=== PATIENT | male | born 1950 | race African-American/Black ===

== ENCOUNTER 2017-02-16 05:41 | Inpatient (IN) | payer OTHER ==
[~2017-02-16] VITALS: Ht 190.5 cm; Wt 77.3 kg
[2017-02-16 06:10] LABS: BASE EXCESS -4.7 mEq/L (-3 to +3); BICARBONATE 20.4 mEq/L (22-26); CARBOXY HGB 1.6 % (0-5); COMMENTS - BLOOD GASES C+; DEVICE MASK VENT; FI02 50 %; METHEMOGLOBIN 0.7 % (0-1.5); MODE SPONT; PCO2 37 mm Hg (35-45); PO2 62 mm Hg (80-100); SITE RR; TOTAL RESP RATE 27 resp/min; pH 7.35 (7.35-7.45)
[2017-02-16 06:11] LABS: PEEP 10 CM/H20; PRES. SUPPORT 10 CM/H2O
[2017-02-16 06:43] LABS: EOSINOPHIL (%) 2.2 % (0-5); EOSINOPHIL COUNT 0.1 K/uL (0-0.3); HEMATOCRIT 36.6 % (38.0-50.0); IMMATURE GRANULOCYTE (%) 0.4 % (0.0-0.7); INSTRUMENT ABS NEUTROPHIL CT 3.8 K/uL; LYMPHOCYTE COUNT 0.9 K/uL (1.0-2.8); MCH 29.8 PG (29.0-34.0); MCHC 32.5 G/DL (30.0-36.0); MCV 91.5 FL (86-99); MEAN PLAT.VOLUME 10.3 uM^3 (9.0-12.4); MONOCYTE (%) 3.8 % (3-12); MONOCYTE COUNT 0.2 K/uL (0-0.8); NEUTROPHIL COUNT 3.8 K/uL (1.8-6.4); PLATELET COUNT 242 K/uL (156-360); RBC DIS.WIDTH-SD 43.7 % (39-53)
[2017-02-16 06:53] LABS: INTER. NORMALIZED RATIO 1.1; PROTHROMBIN TIME 10.7 (9.2-11.2); PTT 25.1 (25-32)
[2017-02-16 06:54] LABS: CHLORIDE 105 mEq/L (99-109); POTASSIUM 3.7 mEq/L (3.7-5.4); SODIUM 138 mEq/L (136-147)
[2017-02-16 06:56] LABS: GLUCOSE 179 mg/dL (70-99)
[2017-02-16 06:58] LABS: ANION GAP 12 MEQ/L (2-14); TOTAL BILIRUBIN 0.5 mg/dL (0.0-1.0)
[2017-02-16 07:00] LABS: ALKALINE PHOSPHATASE 77 IU/L (3-129)
[2017-02-16 07:01] LABS: UREA NITROGEN (BUN) 24 mg/dL (9-23)
[2017-02-16 07:02] LABS: GFR ESTIMATE (CALCULATED) 44 mL/min/
[2017-02-16 07:03] LABS: TROP-I INTERPRETATION NEGATIVE; TROPONIN-I 0.03 ng/mL (0.0-0.30)
[2017-02-16 07:04] LABS: LIPASE 22 U/L (1.0-51.0)
[2017-02-16 07:55] LABS: ADD MIUA? NO; BILIRUBIN NEGATIVE; BLOOD NEGATIVE; COLOR COLORLESS ((YELLOW)); GLUCOSE (STRIP) NEGATIVE; KETONES NEGATIVE; LEUKOCYTES NEGATIVE; NITRITE NEGATIVE; PROTEIN (STRIP) 30; SPECIFIC GRAVITY 1.006 (1.000-1.030); UCUL ADDED? NO; UROBILINOGEN 0.2 MG/DL (0.2-1.0)
[2017-02-16 09:47] VITALS: BP 181/107
[2017-02-16 10:14] VITALS: BP 181/107
[2017-02-16 11:45] VITALS: BP 162/95
[2017-02-16 15:30] VITALS: BP 129/74
[2017-02-16 20:36] LABS: TROP-I INTERPRETATION NEGATIVE; TROPONIN-I 0.05 ng/mL (0.0-0.30)
[2017-02-16 20:55] VITALS: BP 132/83
[2017-02-17] VITALS (7 sets, daily range): BP systolic 129–143; BP diastolic 74–89
[2017-02-17 07:34] LABS: ANION GAP 12 MEQ/L (2-14); CHLORIDE 101 MEQ/L (99-109); GFR ESTIMATE (CALCULATED) 44 mL/min/; POTASSIUM 3.8 MEQ/L (3.7-5.4); SAMPLE HEMOLYSIS CHECK 0; SAMPLE ICTERIC CHECK 0; SAMPLE LIPEMIA CHECK 0; SODIUM 141 MEQ/L (136-147); UREA NITROGEN (BUN) 28 mg/dL (9-23)
[2017-02-17 07:37] LABS: GLUCOSE 89 mg/dL (70-99)
[2017-02-17 08:45] LABS: HEMATOCRIT 38.2 % (38.0-50.0); MCV 92.3 FL (86-99)
[2017-02-17 08:57] LABS: HDL CHOLESTEROL 51 MG/DL (Desirable>=40); LDL CHOLESTEROL 127 mg/dL (Desirable<100); NON-HDL CHOLESTEROL 139 mg/dL (Desirable<160); TOTAL CHOLESTEROL 190 mg/dL (Desirable<200); TRIGLYCERIDES 59 MG/DL (Normal: <150)
[2017-02-17 09:30] LABS: TROP-I INTERPRETATION NEGATIVE; TROPONIN-I 0.04 ng/mL (0.0-0.30)
[2017-02-17 09:32] LABS: Estimated Average Glucose 114 mg/dL (70-123); HEMOGLOBIN A1c (GLYCOHEMOGLOB) 5.6 % HGB (Below 5.7)
[2017-02-17 17:21] LABS: ANION GAP 10 MEQ/L (2-14); CHLORIDE 99 MEQ/L (99-109); GFR ESTIMATE (CALCULATED) 53 mL/min/; GLUCOSE 87 mg/dL (70-99); POTASSIUM 3.7 MEQ/L (3.7-5.4); SAMPLE HEMOLYSIS CHECK 0; SAMPLE ICTERIC CHECK 0; SAMPLE LIPEMIA CHECK 0; SODIUM 138 MEQ/L (136-147); UREA NITROGEN (BUN) 30 mg/dL (9-23)
[2017-02-18 03:35] VITALS: BP 135/76
[2017-02-18 06:28] LABS: EOSINOPHIL (%) 3.1 % (0-5); EOSINOPHIL COUNT 0.1 K/uL (0-0.3); HEMATOCRIT 39.2 % (38.0-50.0); IMMATURE GRANULOCYTE (%) 0.3 % (0.0-0.7); INSTRUMENT ABS NEUTROPHIL CT 1.9 K/uL; LYMPHOCYTE COUNT 1.6 K/uL (1.0-2.8); MCH 29.8 PG (29.0-34.0); MCHC 32.7 G/DL (30.0-36.0); MCV 91.4 FL (86-99); MEAN PLAT.VOLUME 10.7 uM^3 (9.0-12.4); MONOCYTE (%) 6.9 % (3-12); MONOCYTE COUNT 0.3 K/uL (0-0.8); NEUTROPHIL (%) 48.7 % (45-76); NEUTROPHIL COUNT 1.9 K/uL (1.8-6.4); PLATELET COUNT 266 K/uL (156-360); RBC DIS.WIDTH-CV 13.1 % (11.8-14.6); RBC DIS.WIDTH-SD 43.3 % (39-53); RED BLOOD COUNT 4.29 M/uL (4.00-5.50); WHITE BLOOD COUNT 3.9 K/uL (4.1-10.2)
[2017-02-18 06:51] LABS: ANION GAP 8 MEQ/L (2-14); CHLORIDE 100 MEQ/L (99-109); GFR ESTIMATE (CALCULATED) 49 mL/min/; GLUCOSE 89 mg/dL (70-99); POTASSIUM 4.1 MEQ/L (3.7-5.4); SAMPLE HEMOLYSIS CHECK 0; SAMPLE ICTERIC CHECK 0; SAMPLE LIPEMIA CHECK 0; SODIUM 136 MEQ/L (136-147); UREA NITROGEN (BUN) 30 mg/dL (9-23)
[2017-02-18 06:54] LABS: ALKALINE PHOSPHATASE 70 IU/L (3-129); ANION GAP 8 MEQ/L (2-14); CHLORIDE 100 MEQ/L (99-109); GFR ESTIMATE (CALCULATED) 53 mL/min/; GLUCOSE 88 mg/dL (70-99); MAGNESIUM 2.3 mg/dl (1.3-2.7); POTASSIUM 4.4 MEQ/L (3.7-5.4); SAMPLE HEMOLYSIS CHECK 0; SAMPLE ICTERIC CHECK 0; SAMPLE LIPEMIA CHECK 0; SODIUM 136 MEQ/L (136-147); TOTAL BILIRUBIN 0.5 MG/DL (0.0-1.0); UREA NITROGEN (BUN) 31 mg/dL (9-23)
[2017-02-18 08:20] VITALS: BP 165/93
[2017-02-18 11:45] VITALS: BP 125/80
[2017-02-18 14:37] LABS: AMPHETAMINES QUANT VALUE 0 NG/ML; BARBITUATES QUANT VALUE 0 NG/ML; BENZODIAZEPINES QUANT VALUE 0 NG/ML; BENZODIAZEPINES, URINE SCREEN Negative (200 ng/mL); MARIJUANA QUANT VALUE 0 NG/ML; OPIATES QUANTITATIVE VALUE 0 NG/ML; PHENCYCLIDINE QUANT VALUE 0 NG/ML
[2017-02-18 16:00] VITALS: BP 152/95
[2017-02-18 20:20] VITALS: BP 155/92
[2017-02-19 00:34] VITALS: BP 136/85
[2017-02-19 04:18] VITALS: BP 136/91
[2017-02-19 05:51] LABS: EOSINOPHIL (%) 2.4 % (0-5); EOSINOPHIL COUNT 0.1 K/uL (0-0.3); IMMATURE GRANULOCYTE (%) 0.2 % (0.0-0.7); INSTRUMENT ABS NEUTROPHIL CT 2.6 K/uL; LYMPHOCYTE COUNT 1.5 K/uL (1.0-2.8); MCH 29.3 PG (29.0-34.0); MCHC 32.7 G/DL (30.0-36.0); MCV 89.7 FL (86-99); MEAN PLAT.VOLUME 10.3 uM^3 (9.0-12.4); MONOCYTE (%) 7.6 % (3-12); MONOCYTE COUNT 0.4 K/uL (0-0.8); NEUTROPHIL (%) 56.9 % (45-76); NEUTROPHIL COUNT 2.6 K/uL (1.8-6.4); PLATELET COUNT 272 K/uL (156-360); RBC DIS.WIDTH-CV 12.7 % (11.8-14.6); RBC DIS.WIDTH-SD 41.7 % (39-53); RED BLOOD COUNT 4.57 M/uL (4.00-5.50); WHITE BLOOD COUNT 4.6 K/uL (4.1-10.2)
[2017-02-19 06:14] LABS: CHLORIDE 105 mEq/L (99-109); POTASSIUM 4.5 mEq/L (3.7-5.4); SODIUM 141 mEq/L (136-147)
[2017-02-19 06:16] LABS: GLUCOSE 99 mg/dL (70-99)
[2017-02-19 06:18] LABS: ANION GAP 9 MEQ/L (2-14); TOTAL BILIRUBIN 0.5 mg/dL (0.0-1.0)
[2017-02-19 06:20] LABS: GFR ESTIMATE (CALCULATED) 56 mL/min/
[2017-02-19 06:48] LABS: ALKALINE PHOSPHATASE 73 IU/L (3-129)
[2017-02-19 06:49] LABS: UREA NITROGEN (BUN) 24 mg/dL (9-23)
[2017-02-19 07:37] VITALS: BP 138/86
[2017-02-19 11:30] VITALS: BP 122/78
[2017-02-19] MEDS ORDERED: FUROSEMIDE20 MG PO (11:48)
[2017-02-19] MEDS ORDERED: NIFEDIPINE ER30 MG PO (11:48)
[2017-02-19] MEDS ORDERED: CARVEDILOL25 MG PO (11:48)
[2017-02-19] MEDS ORDERED: ASPIR-LOW81 MG PO (11:48)
== END 2017-02-19 14:10 | disposition home or self-care (01) | DRG 189 ==
LOC: EME 05:41 → EDOF 08:12 → 4EAST 08:12
PROVIDERS: Emergency Medicine; Hospitalist; Internal Medicine Cardiovascular Disease
DX: J96.01 Acute respiratory failure with hypoxia (principal); I50.21 Acute systolic (congestive) heart failure; J81.1 Chronic pulmonary edema; N17.9 Acute kidney failure, unspecified; I50.1 Left ventricular failure, unspecified; I13.0 Hypertensive heart and chronic kidney disease with heart failure and stage 1 through stage 4 chronic kidney disease, or unspecified chronic kidney disease; J90 Pleural effusion, not elsewhere classified; I20.0 Unstable angina; M54.5 Low back pain; R07.9 Chest pain, unspecified; I25.9 Chronic ischemic heart disease, unspecified; R73.9 Hyperglycemia, unspecified; R00.0 Tachycardia, unspecified; D64.9 Anemia, unspecified; N18.3 Chronic kidney disease, stage 3 (moderate); I16.0 Hypertensive urgency; H91.93 Unspecified hearing loss, bilateral; G89.29 Other chronic pain; Z87.891 Personal history of nicotine dependence
CPT/HCPCS: 36600; 71010; 71275; 76770; 80048; 80048 91; 80053; 80061; 80306 90; 81003; 82803; 83036; 83605; 83690; 83735; 83880; 84100; 84484; 84550; 85014; 85018; 85025; 85610; 85730; 87040; 93005; 93306; 94002; 94010; 94640; 94760; 94799; 99202; 99281; 99284; J0696; J1644; J1650; J1940; J7050; J7644